=== PATIENT | female | born 1960 | race Caucasian/White ===

== ENCOUNTER 2016-12-03 11:44 | Observation (INO) | payer OTHER ==
[2016-12-05] MEDS ORDERED: CYMBALTA60 MG PO (11:33)
[2016-12-05] MEDS ORDERED: DAILY VITE1 EACH PO (11:34)
[2016-12-05] MEDS ORDERED: AMBIEN CR6.25 MG PO (11:34)
[2016-12-05] MEDS ORDERED: CALCIUM 600 +1 EACH PO (11:34)
[2016-12-05] MEDS ORDERED: OSTEO BI-FLEX1 EAC1 PO (11:35)
[2016-12-05] MEDS ORDERED: TAMIFLU75 MG PO (11:35)
== END 2016-12-05 10:57 | disposition home or self-care (01) ==
LOC: ER 11:44 → MED 15:46
PROVIDERS: ADMIT Internal Medicine
DX: J09.X2 Influenza due to identified novel influenza A virus with other respiratory manifestations (principal); I95.9 Hypotension, unspecified; R55 Syncope and collapse; D72.819 Decreased white blood cell count, unspecified; L40.50 Arthropathic psoriasis, unspecified; Z80.1 Family history of malignant neoplasm of trachea, bronchus and lung; Z82.49 Family history of ischemic heart disease and other diseases of the circulatory system; Z82.5 Family history of asthma and other chronic lower respiratory diseases; Z88.8 Allergy status to other drugs, medicaments and biological substances; Z79.899 Other long term (current) drug therapy; Z98.890 Other specified postprocedural states
CPT/HCPCS: 36415; 87502; 96360; 96361; 96372; 96374; G0378; J1650